=== PATIENT | female | born 1995 | race Caucasian/White ===

== ENCOUNTER 2019-11-08 17:47 | Observation (INO) ==
[2019-11-08] MEDS ORDERED: Ondansetron 4 MG/2 ML VIAL IVP PRN (20:03)
[2019-11-08] MEDS ORDERED: Acetaminophen 325 MG TABLET PO PRN (20:03)
[2019-11-08] MEDS: Ringers Solution, Lactated 1,000 ML IVC SCH (20:50)
[2019-11-08] MEDS ORDERED: *HR* Methadone 10 MG TABLET PO ONE (21:05)
[2019-11-08] MEDS ORDERED: *HR* Promethazine 25 MG/ML VIAL IVP PRN (21:10)
[2019-11-08] MEDS ORDERED: Melatonin 3 MG TABLET PO PRN (23:01)
[2019-11-09 00:42] LABS: Basophils % 0.1 %; Hematocrit 34.5 % (35.3-44.9); Hemoglobin 11.9 g/dL (11.5-15.4); Immature Granulocytes % 0.4 % (0-4); Lymphocytes # 2.4 K/mcL (0.6-4.6); Lymphocytes % 18.1 %; Mean Corpuscular HGB Conc 34.5 g/dL (31.6-35.5); Mean Corpuscular Hemoglobin 31.4 pg (28.0-33.3); Monocytes # 0.8 K/mcL (0.0-1.3); Monocytes % 5.8 %; Platelet Count 162 K/mcL (140-400); Red Blood Count 3.79 M/mcL (3.82-4.97); Red Cell Distribution Width 12.2 % (11.5-14.5); Segmented Neutrophils % 75.6 %; White Blood Count 13.2 K/mcL (4.3-11.1)
[2019-11-09 00:50] LABS: INR 1.3; Prothrombin Time 14.2 Seconds (9.4-12.1)
[2019-11-09 01:03] LABS: Alanine Aminotransferase 10 Units/L (7-52); Albumin 3.6 g/dL (3.5-5.7); Albumin/Globulin Ratio 1.5 (1.1-2.2); Alkaline Phosphatase 57 Units/L (34-104); Aspartate Amino Transferase 10 Units/L (13-39); BUN/Creatinine Ratio 18 (6-26); Bilirubin,Direct 0.1 mg/dL (0.0-0.2); Bilirubin,Indirect 0.3 mg/dL (0.0-1.0); Bilirubin,Total 0.4 mg/dL (0.3-1.0); Blood Urea Nitrogen 10 mg/dL (6-20); Calcium 8.3 mg/dL (8.6-10.3); Carbon Dioxide 21 mEq/L (23-29); Chloride 109 mEq/L (98-107); Globulin 2.4 g/dL (2.4-3.5); Glucose 91 mg/dL (70-105); Magnesium 1.6 mg/dL (1.6-2.6); Osmolality,Calculated 289 (280-300); Phosphorous 3.2 mg/dL (2.7-4.5); Potassium 3.4 mEq/L (3.5-5.1); Sodium 140 mEq/L (136-145); eGFR For African Americans > 60 (> 60); eGFR For Non-African Americans > 60 (> 60)
[2019-11-09 04:51] LABS: Hepatitis B Surface Antigen Nonreactive (Nonreactive)
[2019-11-09] MEDS: Ringers Solution, Lactated 1,000 ML IVC SCH (04:57)
[2019-11-09 05:20] LABS: Hepatitis B Core IgM Nonreactive (Nonreactive)
[2019-11-09 05:22] LABS: Hepatitis A Antibody IgM Nonreactive (Nonreactive)
[2019-11-09] MEDS ORDERED: Potassium Chloride Elixir 20 MEQ/15 ML UDC PO ONE ×2 (07:00→11:50)
[2019-11-09] MEDS ORDERED: *HR* LORazepam 2 MG/ML VIAL IVP PRN ×2 (07:54)
[2019-11-09] MEDS ORDERED: Thiamine (B-1) 100 MG TABLET PO SCH (09:00)
[2019-11-09] MEDS ORDERED: Vitamin B Complex/Vit C/Vit E 1 EACH TABLET PO SCH (09:00)
[2019-11-09] MEDS ORDERED: Nicotine 14 MG PATCH.TD24 TD SCH (09:00)
[2019-11-09] MEDS ORDERED: Folic Acid 1 MG TABLET PO SCH (09:00)
[2019-11-09 09:01] LABS: Hepatitis C Virus Antibody Reactive (Nonreactive)
[2019-11-09] MEDS: Nicotine 2 MG GUM BC PRN ×2 (09:27→21:49)
[2019-11-09] MEDS: *HR* LORazepam 2 MG/ML VIAL IVP PRN ×2 (09:50→15:56)
[2019-11-09] MEDS ORDERED: Sennosides/Docusate Sodium TABLET PO PRN (11:45)
[2019-11-09 13:02] LABS: Thyroid Stimulating Hormone 0.323 mcIU/mL (0.340-5.600)
[2019-11-10 05:43] LABS: Hematocrit 33.4 % (35.3-44.9); Hemoglobin 12.1 g/dL (11.5-15.4); Mean Corpuscular HGB Conc 36.2 g/dL (31.6-35.5); Mean Corpuscular Hemoglobin 31.2 pg (28.0-33.3); Mean Corpuscular Volume 86.1 fL (83.0-100.0); Platelet Count 167 K/mcL (140-400); Red Blood Count 3.88 M/mcL (3.82-4.97); Red Cell Distribution Width 11.9 % (11.5-14.5); White Blood Count 11.1 K/mcL (4.3-11.1)
[2019-11-10 06:08] LABS: BUN/Creatinine Ratio 21 (6-26); Blood Urea Nitrogen 12 mg/dL (6-20); Calcium 8.5 mg/dL (8.6-10.3); Carbon Dioxide 23 mEq/L (23-29); Chloride 101 mEq/L (98-107); Glucose 82 mg/dL (70-105); Osmolality,Calculated 283 (280-300); Potassium 3.1 mEq/L (3.5-5.1); Sodium 137 mEq/L (136-145); eGFR For African Americans > 60 (> 60); eGFR For Non-African Americans > 60 (> 60)
[2019-11-10] MEDS ORDERED: Ondansetron ODT 4 MG TAB.RAPDIS SL PRN (10:36)
[2019-11-10 11:11] VITALS: BP 142/95
[2019-11-10 12:23] LABS: Triiodothyronine (T3) Free 2.31 pg/mL (2.50-3.90)
== END 2019-11-10 12:18 | disposition home or self-care (01) ==
LOC: 2NENU → SUATTDRO 19:36
PROVIDERS: ADMIT Internal Medicine; ATTEND Family Medicine

== ENCOUNTER 2021-01-22 22:36 | Inpatient (IN) ==
[~2021-01-22 22:36] MED LIST: Famotidine 20 MG/2 ML VIAL IVP PRN; Metoclopramide 10 MG/2 ML VIAL IVP PRN; Naloxone 0.4 MG/ML INJ IVP PRN; Ondansetron 4 MG/2 ML VIAL IVP PRN
[2021-01-22] MEDS ORDERED: Ringers Solution, Lactated 1,000 ML IVC SCH (22:45)
[2021-01-22 23:29] LABS: Bacteria,Urine Few per hpf (None-Few); Bilirubin,Urine Negative (Negative); Blood,Urine Negative (Negative); Clarity,Urine Clear (Clear); Color,Urine Yellow (Yellow); Glucose,Urine (UA) Normal (Normal); Ketones,Urine 40 mg/dL (Negative); Leukocyte Esterase,Urine Moderate (Negative); Nitrite,Urine Negative (Negative); PH,Urine 6.5 pH Units (5.0-8.0); Protein,Urine Trace mg/dL (Neg-Trace); RBC,Urine 0-3 per hpf (0-3); Renal Epithelial Cells,Urine Few per hpf (None-Few); Specific Gravity,Urine 1.015 (1.010-1.025); Squamous Epithelial Cell,Urine Few per hpf (None-Few); Urobilinogen,Urine Normal (Normal); WBC,Urine 30-50 per hpf (0-3)
[2021-01-22 23:48] LABS: Basophils % 0.2 %; Eosinophils # 0.1 K/mcL (0.0-0.6); Eosinophils % 0.5 %; Hematocrit 35.7 % (35.3-44.9); Hemoglobin 11.8 g/dL (11.5-15.4); Immature Granulocytes % 1.2 % (0-4); Lymphocytes # 1.5 K/mcL (0.6-4.6); Lymphocytes % 9.6 %; Mean Corpuscular HGB Conc 33.1 g/dL (31.6-35.5); Mean Corpuscular Hemoglobin 29.6 pg (28.0-33.3); Mean Corpuscular Volume 89.5 fL (83.0-100.0); Mean Platelet Volume 9.4 fL (9.4-12.4); Monocytes # 0.6 K/mcL (0.0-1.3); Neutrophils # 13.3 K/mcL (1.6-8.9); Platelet Count 389 K/mcL (140-400); Red Blood Count 3.99 M/mcL (3.82-4.97); Red Cell Distribution Width 14.6 % (11.5-14.5); Segmented Neutrophils % 84.5 %; White Blood Count 15.7 K/mcL (4.3-11.1)
[2021-01-23] MEDS ORDERED: EPHEDrine 50 MG/ML VIAL IVP PRN (00:09)
[2021-01-23 00:15] LABS: Amphetamine Screen,Urine Negative ng/mL (Cutoff=1000); Barbiturate Screen,Urine Negative ng/mL (Cutoff=200); Benzodiazepines Screen,Urine Positive ng/mL (Cutoff=200); Cannabinoid Screen,Urine Negative ng/mL (Cutoff = 50); Cocaine Screen,Urine Negative ng/mL (Cutoff= 300); Opiate Screen,Urine Positive ng/mL (Cutoff=300); Phencyclidine Screen,Urine Negative ng/mL (Cutoff=25)
[2021-01-23] MEDS ORDERED: Epidural Premix (fent/bupiv) 110 ML EP SCH (00:15)
[2021-01-23] MEDS ORDERED: Lidocaine 1% 20 ML MDV ONE (01:55)
[2021-01-23 01:56] LABS: Hepatitis B Surface Antigen Nonreactive (Nonreactive)
[2021-01-23 02:25] LABS: HIV-1&2 Antibody & p24 Ag Nonreactive (Nonreactive)
[2021-01-23] MEDS ORDERED: Oxytocin 20 units/ LR 1000 mL 20 UNIT/1,000 ML BAG IVC SCH (04:52)
[2021-01-23] MEDS ORDERED: Measles/Mumps/Rubella Vacc 0.5 ML VIAL SQ PRN (04:52)
[2021-01-23] MEDS: Ondansetron ODT 4 MG TAB.RAPDIS SL SCH ×4 (09:08→19:33)
[2021-01-23] MEDS: Prenatal Vit/FA 1 EACH TABLET PO SCH (09:10)
[2021-01-23] MEDS: *HR* Buprenorphine HCl 8 MG TAB.SUBL SL SCH (09:10)
[2021-01-23] MEDS: Ibuprofen 600 MG TABLET PO PRN ×2 (09:16→19:32)
[2021-01-23] MEDS: Acetaminophen 325 MG TABLET PO PRN (10:55)
[2021-01-23] MEDS ORDERED: Ondansetron 4 MG/2 ML VIAL IVP PRN (11:32)
[2021-01-23] MEDS: Nicotine 21 MG PATCH.TD24 TD SCH (11:35)
[2021-01-23] MEDS ORDERED: Ondansetron 4 MG/2 ML VIAL IVP SCH (12:00)
[2021-01-23] MEDS ORDERED: cloNIDine HCL 0.1 MG TABLET PO SCH (15:30)
[2021-01-23 16:00] LABS: Varicella Zoster IgG Antibody Positive
[2021-01-23 16:01] LABS: Rubella IgG Antibody POSITIVE (POSITIVE)
[2021-01-23] MEDS ORDERED: CloNIDine Patch 0.2 MG PATCH (WEEKLY) TD SCH (16:45)
[2021-01-24] MEDS: Acetaminophen 325 MG TABLET PO PRN (03:54)
[2021-01-24] MEDS: Ondansetron ODT 4 MG TAB.RAPDIS SL SCH ×3 (03:54→20:15)
[2021-01-24] MEDS: Ibuprofen 600 MG TABLET PO PRN ×2 (08:27→20:15)
[2021-01-24] MEDS: Prenatal Vit/FA 1 EACH TABLET PO SCH (08:27)
[2021-01-24] MEDS: *HR* Buprenorphine HCl 8 MG TAB.SUBL SL SCH (08:28)
[2021-01-24 09:49] LABS: Basophils % 0.1 %; Eosinophils # 0.2 K/mcL (0.0-0.6); Eosinophils % 1.6 %; Hematocrit 30.6 % (35.3-44.9); Hemoglobin 10.3 g/dL (11.5-15.4); Immature Granulocytes % 1.2 % (0-4); Lymphocytes # 2.3 K/mcL (0.6-4.6); Lymphocytes % 16.1 %; Mean Corpuscular HGB Conc 33.7 g/dL (31.6-35.5); Mean Corpuscular Hemoglobin 30.4 pg (28.0-33.3); Mean Corpuscular Volume 90.3 fL (83.0-100.0); Mean Platelet Volume 9.3 fL (9.4-12.4); Monocytes % 7.1 %; Neutrophils # 10.4 K/mcL (1.6-8.9); Platelet Count 324 K/mcL (140-400); Red Blood Count 3.39 M/mcL (3.82-4.97); Red Cell Distribution Width 14.7 % (11.5-14.5); Segmented Neutrophils % 73.9 %
[2021-01-24 10:19] LABS: Alanine Aminotransferase 6 Units/L (7-52); Aspartate Amino Transferase 15 Units/L (13-39); BUN/Creatinine Ratio 11 (6-26); Blood Urea Nitrogen 7 mg/dL (6-20); Lactate Dehydrogenase 133 Units/L (140-271); Uric Acid 4.7 mg/dL (2.3-7.6); eGFR For African Americans > 60 (> 60); eGFR For Non-African Americans > 60 (> 60)
[2021-01-24 20:08] LABS: SARS-CoV-2 by NAA Not Detected (Not Detected)
[2021-01-25] MEDS: Ondansetron ODT 4 MG TAB.RAPDIS SL SCH ×2 (07:20→08:26)
[2021-01-25 07:48] VITALS: BP 118/75
[2021-01-25] MEDS: Prenatal Vit/FA 1 EACH TABLET PO SCH (08:26)
[2021-01-25] MEDS: Ibuprofen 600 MG TABLET PO PRN (08:26)
[2021-01-25] MEDS: *HR* Buprenorphine HCl 8 MG TAB.SUBL SL SCH (08:29)
[2021-01-25] MEDS: Nicotine 21 MG PATCH.TD24 TD SCH (08:30)
== END 2021-01-25 13:11 | disposition home or self-care (01) | DRG 560 ==
LOC: 1NENULAB → 1NENUOBS 01-23 04:43
PROVIDERS: ADMIT Obstetrics & Gynecology; ATTEND Obstetrics & Gynecology

== ENCOUNTER → 2022-06-24 20:11 | Observation (INO) ==
[2022-06-23 17:35] LABS: Basophils % 0.1 %; Eosinophils % 0.3 %; Hematocrit 32.9 % (35.3-44.9); Hemoglobin 11.2 g/dL (11.5-15.4); Immature Granulocytes % 0.6 % (0-4); Lymphocytes # 1.6 K/mcL (0.6-4.6); Lymphocytes % 15.7 %; Mean Corpuscular Hemoglobin 31.5 pg (28.0-33.3); Mean Corpuscular Volume 92.7 fL (83.0-100.0); Mean Platelet Volume 10.5 fL (9.4-12.4); Monocytes # 0.9 K/mcL (0.0-1.3); Monocytes % 8.8 %; Neutrophils # 7.6 K/mcL (1.6-8.9); Platelet Count 178 K/mcL (140-400); Red Blood Count 3.55 M/mcL (3.82-4.97); Red Cell Distribution Width 13.7 % (11.5-14.5); Segmented Neutrophils % 74.5 %; White Blood Count 10.2 K/mcL (4.3-11.1)
[2022-06-23 17:40] LABS: Bilirubin,Urine Negative (Negative); Blood,Urine Large (Negative); Clarity,Urine Turbid (Clear); Color,Urine Yellow (Yellow); Glucose,Urine (UA) Normal (Normal); Ketones,Urine 20 mg/dL (Negative); Leukocyte Esterase,Urine Large (Negative); Mucus,Urine Moderate per lpf (None-Few); Nitrite,Urine Negative (Negative); PH,Urine 6.5 pH Units (5.0-8.0); Protein,Urine 50 mg/dL (Neg-Trace); Protein/Creatinine Ratio,Urine 0.29 mg/mg (0.00-0.20); Specific Gravity,Urine > 1.030 (1.010-1.025); Squamous Epithelial Cell,Urine Many per hpf (None-Few); WBC,Urine 30-50 per hpf (0-3)
[2022-06-23 19:06] LABS: Alanine Aminotransferase 38 Units/L (7-52); Aspartate Amino Transferase 43 Units/L (13-39); BUN/Creatinine Ratio 14 (6-26); Blood Urea Nitrogen 8 mg/dL (6-20); Lactate Dehydrogenase 135 Units/L (140-271); Uric Acid 4.6 mg/dL (2.3-7.6); eGFR For African Americans > 60 (> 60); eGFR For Non-African Americans > 60 (> 60)
[2022-06-23] MEDS: *HR* Buprenorphine HCl 8 MG TAB.SUBL SL SCH (21:33)
[2022-06-23] MEDS: *HR* Metformin 500 MG TABLET PO SCH (21:54)
[2022-06-24 04:52] LABS: Protein/Creatinine Ratio,Urine 0.24 mg/mg (0.00-0.20)
[2022-06-24 04:54] LABS: Basophils % 0.2 %; Eosinophils # 0.1 K/mcL (0.0-0.6); Eosinophils % 0.7 %; Hematocrit 31.3 % (35.3-44.9); Hemoglobin 10.4 g/dL (11.5-15.4); Immature Granulocytes % 0.7 % (0-4); Lymphocytes # 2.1 K/mcL (0.6-4.6); Lymphocytes % 26.1 %; Mean Corpuscular HGB Conc 33.2 g/dL (31.6-35.5); Mean Corpuscular Hemoglobin 31.3 pg (28.0-33.3); Mean Corpuscular Volume 94.3 fL (83.0-100.0); Mean Platelet Volume 10.1 fL (9.4-12.4); Monocytes # 0.8 K/mcL (0.0-1.3); Monocytes % 9.2 %; Neutrophils # 5.2 K/mcL (1.6-8.9); Platelet Count 161 K/mcL (140-400); Red Blood Count 3.32 M/mcL (3.82-4.97); Red Cell Distribution Width 13.9 % (11.5-14.5); Segmented Neutrophils % 63.1 %; White Blood Count 8.2 K/mcL (4.3-11.1)
[2022-06-24] MEDS: *HR* Buprenorphine HCl 8 MG TAB.SUBL SL SCH (08:31)
[2022-06-24] MEDS: *HR* Metformin 500 MG TABLET PO SCH (09:13)
[2022-06-24 12:36] LABS: Alanine Aminotransferase 38 Units/L (7-52); Aspartate Amino Transferase 47 Units/L (13-39); BUN/Creatinine Ratio 13 (6-26); Blood Urea Nitrogen 7 mg/dL (6-20); Lactate Dehydrogenase 149 Units/L (140-271); Uric Acid 4.6 mg/dL (2.3-7.6); eGFR For African Americans > 60 (> 60); eGFR For Non-African Americans > 60 (> 60)
[~2022-06-24 20:11] MED LIST changes: +EPHEDrine 50 MG/ML VIAL IVP PRN; +Epidural Premix (fent/bupiv) 110 ML EP SCH; -Famotidine 20 MG/2 ML VIAL IVP PRN; -Metoclopramide 10 MG/2 ML VIAL IVP PRN; -Naloxone 0.4 MG/ML INJ IVP PRN; -Ondansetron 4 MG/2 ML VIAL IVP PRN
== END | disposition home or self-care (01) ==
LOC: 1NENULAB
PROVIDERS: ADMIT Registered Nurse; ATTEND Registered Nurse

== ENCOUNTER 2022-06-27 03:48 | Inpatient (IN) ==
[2022-06-27] MEDS ORDERED: miSOPROStoL 25 MCG TABLET PO PRN (04:31)
[2022-06-27] MEDS ORDERED: Metoclopramide 10 MG/2 ML VIAL IVP PRN (04:33)
[2022-06-27] MEDS ORDERED: Naloxone 0.4 MG/ML INJ IVP PRN (04:33)
[2022-06-27] MEDS ORDERED: Famotidine 20 MG/2 ML VIAL IVP PRN (04:33)
[2022-06-27] MEDS ORDERED: Ringers Solution, Lactated 1,000 ML IVC SCH (04:45)
[2022-06-27 05:37] LABS: Basophils % 0.2 %; Eosinophils # 0.1 K/mcL (0.0-0.6); Eosinophils % 0.6 %; Hematocrit 31.8 % (35.3-44.9); Hemoglobin 10.9 g/dL (11.5-15.4); Immature Granulocytes % 0.8 % (0-4); Lymphocytes # 1.8 K/mcL (0.6-4.6); Lymphocytes % 21.3 %; Mean Corpuscular HGB Conc 34.3 g/dL (31.6-35.5); Mean Corpuscular Hemoglobin 31.8 pg (28.0-33.3); Mean Corpuscular Volume 92.7 fL (83.0-100.0); Mean Platelet Volume 9.9 fL (9.4-12.4); Monocytes # 0.8 K/mcL (0.0-1.3); Monocytes % 9.4 %; Neutrophils # 5.7 K/mcL (1.6-8.9); Platelet Count 161 K/mcL (140-400); Red Blood Count 3.43 M/mcL (3.82-4.97); Red Cell Distribution Width 13.9 % (11.5-14.5); Segmented Neutrophils % 67.7 %; White Blood Count 8.5 K/mcL (4.3-11.1)
[2022-06-27 05:47] LABS: Amphetamine Screen,Urine Negative ng/mL (Cutoff=1000); Barbiturate Screen,Urine Negative ng/mL (Cutoff=200); Benzodiazepines Screen,Urine Negative ng/mL (Cutoff=200); Cannabinoid Screen,Urine Negative ng/mL (Cutoff = 50); Cocaine Screen,Urine Negative ng/mL (Cutoff= 300); Opiate Screen,Urine Negative ng/mL (Cutoff=300); Phencyclidine Screen,Urine Negative ng/mL (Cutoff=25)
[2022-06-27] MEDS ORDERED: *HR* FentaNYL (PF) 100 MCG/2 ML VIAL EP ONE (14:06)
[2022-06-27] MEDS ORDERED: EPHEDrine 50 MG/ML VIAL IVP PRN (14:06)
[2022-06-27] MEDS ORDERED: Ropivacaine/PF 0.2% 20 ML VIAL EP ONE (14:06)
[2022-06-27] MEDS ORDERED: Epidural Premix (fent/bupiv) 110 ML EP SCH (14:15)
[2022-06-27] MEDS ORDERED: Oxytocin 30 UNIT/503 ML BAG IVC SCH (21:00)
[2022-06-28] MEDS ORDERED: 0.9 % Sodium Chloride 1,000 ML ONE (01:05)
[2022-06-28] MEDS ORDERED: *HR* FentaNYL (PF) 100 MCG/2 ML VIAL ONE (04:33)
[2022-06-28] MEDS ORDERED: Ropivacaine/PF 0.2% 20 ML VIAL ONE (04:33)
[2022-06-28] MEDS ORDERED: Rho Immune Globulin 1,500 UNIT SYRINGE IM PRN ×3 (08:56→10:58)
[2022-06-28] MEDS ORDERED: OXYTOCIN/RINGERS LACTATE 10 UNIT/166.6 ML BAG IVC ONE ×3 (08:56→10:58)
[2022-06-28] MEDS ORDERED: Benzocaine/Menthol 56 GM AEROSOL SPRAY TP PRN ×3 (08:56→10:58)
[2022-06-28] MEDS ORDERED: Lanolin 7 G OINT...G. TP PRN ×3 (08:56→10:58)
[2022-06-28] MEDS ORDERED: Measles/Mumps/Rubella Vacc 0.5 ML VIAL SQ PRN ×3 (08:56→10:58)
[2022-06-28] MEDS ORDERED: Ondansetron ODT 4 MG TAB.RAPDIS SL PRN ×3 (08:56→10:58)
[2022-06-28] MEDS ORDERED: Acetaminophen 325 MG TABLET PO SCH ×2 (09:00→11:00)
[2022-06-28] MEDS ORDERED: Prenatal Vit/FA 1 EACH TABLET PO SCH (09:00)
[2022-06-28] MEDS ORDERED: Oxytocin 30 UNIT/503 ML BAG IVC SCH ×3 (09:00→11:00)
[2022-06-28] MEDS ORDERED: ARIPiprazole 5 MG TABLET PO SCH (10:28)
[2022-06-28] MEDS ORDERED: BuPROPion XL (24 HR) 150 MG TABLET PO SCH (10:28)
[2022-06-28] MEDS ORDERED: *HR* Buprenorphine HCl 8 MG TAB.SUBL SL SCH ×2 (10:28→21:00)
[2022-06-28] MEDS: Acetaminophen 325 MG TABLET PO SCH ×3 (11:35→23:28)
[2022-06-28] MEDS ORDERED: Ibuprofen 600 MG TABLET PO SCH ×2 (12:00→13:50)
[2022-06-28] MEDS: Ibuprofen 600 MG TABLET PO SCH ×2 (17:42→23:28)
[2022-06-28] MEDS ORDERED: NON-FORMULARY MEDICATION 1 EACH EACH (Subutex 8 MG) PO SCH (21:00)
[2022-06-29 04:37] LABS: Basophils % 0.2 %; Eosinophils # 0.1 K/mcL (0.0-0.6); Eosinophils % 0.8 %; Hematocrit 26.3 % (35.3-44.9); Immature Granulocytes % 0.9 % (0-4); Lymphocytes # 2.3 K/mcL (0.6-4.6); Lymphocytes % 22.3 %; Mean Corpuscular HGB Conc 33.1 g/dL (31.6-35.5); Mean Corpuscular Hemoglobin 30.5 pg (28.0-33.3); Mean Corpuscular Volume 92.3 fL (83.0-100.0); Mean Platelet Volume 10.4 fL (9.4-12.4); Monocytes # 0.9 K/mcL (0.0-1.3); Monocytes % 9.2 %; Neutrophils # 6.8 K/mcL (1.6-8.9); Platelet Count 169 K/mcL (140-400); Red Blood Count 2.85 M/mcL (3.82-4.97); Red Cell Distribution Width 13.9 % (11.5-14.5); Segmented Neutrophils % 66.6 %; White Blood Count 10.2 K/mcL (4.3-11.1)
[2022-06-29 04:43] LABS: Hemoglobin 8.7 g/dL (11.5-15.4)
[2022-06-29 07:30] VITALS: BP 117/76; PULSE 82; TEMP 98.5; O2SAT 97
[2022-06-29] MEDS ORDERED: ARIPiprazole 5 MG TABLET PO SCH (09:00)
[2022-06-29] MEDS ORDERED: BuPROPion XL (24 HR) 150 MG TABLET PO SCH (09:00)
[2022-06-29] MEDS ORDERED: Prenatal Vit/FA 1 EACH TABLET PO SCH ×2 (09:00)
[2022-06-29] MEDS ORDERED: ABILIFY 5 MG PO SCH (09:00)
[2022-06-29] MEDS ORDERED: WELLBUTRIN 150 MG PO SCH (09:00)
== END 2022-06-29 11:20 | disposition home or self-care (01) | DRG 560 ==
LOC: 1NENULAB 03:48 → 1NENUOBS 06-28 11:58
PROVIDERS: ADMIT Student in an Organized Health Care Education/Training Program; ATTEND Student in an Organized Health Care Education/Training Program